=== PATIENT | female | born 2000 | race Hispanic/Latino ===

== ENCOUNTER 2021-04-20 04:00 | Inpatient (IN) | payer MEDICAID ==
[~2021-04-20] VITALS: Ht 152.4 cm; Wt 52.6 kg
[2021-04-20] MEDS ORDERED: ZIPRASIDONE MESYLATE 20 MG/VIAL IM ONE ×2 (04:42→05:00)
[2021-04-20] MEDS ORDERED: DiphenhydrAMINE HCL 50 MG/ML VIAL ONE (04:42)
[2021-04-20] MEDS ORDERED: LORAZEPAM 2 MG/ML 1 ML VIAL ONE (04:42)
[2021-04-20] MEDS ORDERED: 0.9%NACL 1000ML 1,000 ML IV ONE ×3 (04:43→05:00)
[2021-04-20 04:56] LABS: BASOPHILS % (AUTO) 0.4 % (0.0-5.0); EOSINOPHILS % (AUTO) 0.1 % (0.0-8.0); LYMPHOCYTES % (AUTO) 22.7 % (21.0-51.0); MEAN CORPUSCULAR HGB CONC 33.8 g/dL (32.0-36.0); MEAN CORPUSCULAR VOLUME 88.6 fL (80-100); MONOCYTES % (AUTO) 11.2 % (3.0-13.0); NEUTROPHILS % (AUTO) 65.3 % (40.0-77.0); PLATELET COUNT (AUTO) 402 K/uL (130-400); RED CELL DISTRIBUTION WIDTH 13.6 % (11.0-15.5); WHITE BLOOD COUNT (AUTO) 14.2 K/uL (4.8-10.8)
[2021-04-20] MEDS ORDERED: LORAZEPAM 2 MG/ML 1 ML VIAL IVP ONE (05:00)
[2021-04-20] MEDS ORDERED: DiphenhydrAMINE HCL 50 MG/ML VIAL IV ONE (05:00)
[2021-04-20 05:05] LABS: CARBON DIOXIDE 26 mmol/L (21-32); CHLORIDE 104 mmol/L (101-111); CREATININE 0.6 mg/dL (0.5-1.5); GLOMERULAR FILTR. RATE CALC 135 mL/min (>60); GLUCOSE,RANDOM 120 mg/dL (70-105); POTASSIUM 3.1 mmol/L (3.5-5.1); SODIUM SERUM 142 mmol/L (136-145); UREA NITROGEN, BLOOD 8 mg/dL (7-18)
[2021-04-20 05:12] LABS: BILIRUBIN,URINE Negative (NEGATIVE); COLOR,URINE Yellow (YELLOW); GLUCOSE, URINE (UA) Negative (NEGATIVE); KETONES,URINE >=80 mg/dL (NEGATIVE); LEUKOCYTE ESTERASE ,URINE Small (NEGATIVE); NITRATE,URINE Positive (NEGATIVE); OCCULT BLOOD,URINE Negative (NEGATIVE); PH,URINE 6.5 (5.0-8.0); PROTEIN,URINE Negative (NEGATIVE)
[2021-04-20 05:15] LABS: APPEARANCE,URINE SLIGHTLY CLOUDY (CLEAR)
[2021-04-20 05:21] LABS: AMPHET/METH SCREEN,URINE NEGATIVE (NEGATIVE); BARBITURATE SCREEN, URINE NEGATIVE (NEGATIVE); BENZODIAZEPINES SCREEN,URINE NEGATIVE (NEGATIVE); CANNABINOID SCREEN,URINE POSITIVE (NEGATIVE); COCAINE SCREEN,URINE NEGATIVE (NEGATIVE); OPIATE SCREEN,URINE NEGATIVE (NEGATIVE); PHENCYCLIDINE SCREEN,URINE NEGATIVE (NEGATIVE)
[2021-04-20 05:24] LABS: BACTERIA,URINE Many /HPF (None Seen); RBC,URINE 0-1 /HPF (0-1); SQUAMOUS EPITHELIAL CELL,UR Few /HPF (0-2)
[2021-04-20 05:25] LABS: MUCUS,URINE Moderate LPF (None Seen)
[2021-04-20 05:26] LABS: HCG,QUAL RESULT NEGATIVE (NEGATIVE)
[2021-04-20 05:28] LABS: ALANINE AMINOTRANSFERASE 36 U/L (12-78); ALBUMIN 4.2 g/dL (3.5-5.0); ALCOHOL, BLOOD < 3 mg/dL (0-10); AMMONIA 17 umol/L (11-32); ASPARTATE AMINOTRANSFERASE 84 U/L (10-37); BILIRUBIN,TOTAL 0.9 mg/dL (0.2-1.0); TOTAL PROTEIN, SERUM 7.5 g/dL (6.0-8.3)
[2021-04-20 05:30] LABS: ACETAMINOPHEN < 1 mcg/mL (10-30); LIPASE 37 U/L (114-286); SALICYLATE < 2.8 mg/dL (2.8-20.0)
[2021-04-20 05:33] LABS: CREATINE KINASE, TOTAL 4426 U/L (21-232)
[2021-04-20] MEDS ORDERED: CEFTRIAXONE 1G VIAL IVP ONE (06:00)
[2021-04-20] MEDS ORDERED: 0.9%NACL 1000ML 1,365 ML IV ONE (06:00)
[2021-04-20] MEDS ORDERED: 0.9%NACL 1000ML 1,000 ML IV SCH (08:30)
[2021-04-20] MEDS ORDERED: POTASSIUM CHLORIDE 10% ELIXIR 20 MEQ/15 ML UDCUP PO PRN (08:30)
[2021-04-20] MEDS ORDERED: ZIPRASIDONE MESYLATE 20 MG/VIAL IM PRN (08:30)
[2021-04-20] MEDS ORDERED: LORAZEPAM 2 MG/ML 1 ML VIAL IVP PRN (08:30)
[2021-04-20] MEDS ORDERED: ONDANSETRON 4MG INJ IVP PRN (08:30)
[2021-04-20] MEDS ORDERED: ACETAMINOPHEN 325 MG TAB PO PRN (08:30)
[2021-04-20] MEDS: CEFTRIAXONE 1G VIAL IVP SCH (08:30)
[2021-04-20] MEDS ORDERED: LIDOCAINE HCL-MPF 1% 2ML VIAL IJ PRN (08:30)
[2021-04-20] MEDS: POTASSIUM CHLORIDE 20MEQ/100ML 100 ML IV PRN ×2 (09:42→16:06)
[2021-04-20] MEDS: 0.9%NACL 1000ML 1,000 ML IV SCH ×3 (09:45→22:20)
[2021-04-20] MEDS ORDERED: 0.9% NACL 500ML IV.SOLN 456 ML IV ONE (19:00)
[2021-04-20 19:28] VITALS: BP 139/85
[2021-04-20 23:13] VITALS: BP 114/75
[2021-04-21 03:36] VITALS: BP 122/70
[2021-04-21 04:29] LABS: BASOPHILS % (AUTO) 0.5 % (0.0-5.0); EOSINOPHILS % (AUTO) 0.8 % (0.0-8.0); HEMATOCRIT 34.5 % (36-48); LYMPHOCYTES % (AUTO) 28.6 % (21.0-51.0); MEAN CORPUSCULAR HEMOGLOBIN 30.1 pg (27.0-33.0); MEAN CORPUSCULAR HGB CONC 33.6 g/dL (32.0-36.0); MEAN CORPUSCULAR VOLUME 89.6 fL (80-100); MONOCYTES % (AUTO) 10.4 % (3.0-13.0); NEUTROPHILS % (AUTO) 59.3 % (40.0-77.0); PLATELET COUNT (AUTO) 339 K/uL (130-400); RED BLOOD CELL COUNT(AUTO) 3.85 MIL/uL (4.00-5.50); RED CELL DISTRIBUTION WIDTH 14.5 % (11.0-15.5); WHITE BLOOD COUNT (AUTO) 12.8 K/uL (4.8-10.8)
[2021-04-21 05:16] LABS: ALBUMIN 3.2 g/dL (3.5-5.0); BILIRUBIN,TOTAL 0.7 mg/dL (0.2-1.0); CREATININE 0.4 mg/dL (0.5-1.5); POTASSIUM 3.2 mmol/L (3.5-5.1)
[2021-04-21] MEDS: POTASSIUM CHLORIDE 20MEQ/100ML 100 ML IV PRN ×2 (06:16→11:08)
[2021-04-21 08:00] VITALS: BP 130/74
[2021-04-21] MEDS: CEFTRIAXONE 1G VIAL IVP SCH (08:51)
[2021-04-21] MEDS ORDERED: FOLIC ACID 5 MG/ML VIAL IV SCH (09:00)
[2021-04-21] MEDS ORDERED: ZIPRASIDONE MESYLATE 20 MG/VIAL IM PRN (10:30)
[2021-04-21] MEDS ORDERED: LORAZEPAM 2 MG/ML 1 ML VIAL IVP PRN (10:30)
[2021-04-21] MEDS: FOLIC ACID 1 MG TABLET PO SCH (11:05)
[2021-04-21] MEDS: THIAMINE HCL 100 MG/ML 2ML VIAL IVP SCH (11:06)
[2021-04-21 12:00] VITALS: BP 121/71
[2021-04-21] MEDS ORDERED: HYDROXYZINE 25 MG TABLET PO PRN (13:30)
[2021-04-21] MEDS ORDERED: PHARMACY COMMUNICATION MISC PRN (15:00)
[2021-04-21] MEDS ORDERED: CHLORDIAZEPOXIDE HCL 25 MG CAP PO PRN (15:00)
[2021-04-21] MEDS: 0.9%NACL 1000ML 1,000 ML IV SCH ×2 (15:00→18:20)
[2021-04-21 16:00] VITALS: BP 115/73
[2021-04-21 19:15] VITALS: BP 114/82
[2021-04-21] MEDS ORDERED: DIPHENHYDRAMINE HCL 25 MG CAPSULE PO ONE (21:00)
[2021-04-21] MEDS: IBUPROFEN 200 MG TAB PO SCH (21:09)
[2021-04-21] MEDS: KCL 20 MEQ ERTAB PO PRN (21:11)
[2021-04-21 23:18] VITALS: BP 111/68
[2021-04-22] MEDS: 0.9%NACL 1000ML 1,000 ML IV SCH (01:00)
[2021-04-22 03:09] VITALS: BP 118/88
[2021-04-22 04:23] LABS: ALBUMIN 2.3 g/dL (3.5-5.0); BILIRUBIN,TOTAL 0.3 mg/dL (0.2-1.0); CREATININE 0.5 mg/dL (0.5-1.5); TOTAL PROTEIN, SERUM 4.7 g/dL (6.0-8.3)
[2021-04-22] MEDS: KCL 20 MEQ ERTAB PO PRN (06:14)
[2021-04-22] MEDS: IBUPROFEN 200 MG TAB PO SCH ×3 (06:14→20:51)
[2021-04-22 08:04] VITALS: BP 114/59
[2021-04-22] MEDS ORDERED: KCL 20 MEQ ERTAB PO SCH (08:30)
[2021-04-22] MEDS ORDERED: MAGNESIUM 2GM PREMIX 50ML 50 ML IV SCH (08:30)
[2021-04-22] MEDS: LACTATED RINGERS 1000ML 1,000 ML IV SCH ×2 (09:10→20:51)
[2021-04-22] MEDS: CEFTRIAXONE 1G VIAL IVP SCH (09:11)
[2021-04-22] MEDS: PANTOPRAZOLE 40 MG TAB DR PO SCH (09:12)
[2021-04-22] MEDS: FOLIC ACID 1 MG TABLET PO SCH (09:12)
[2021-04-22] MEDS: THIAMINE HCL 100 MG/ML 2ML VIAL IVP SCH (09:13)
[2021-04-22 12:24] VITALS: BP 112/67
[2021-04-22 16:21] VITALS: BP 126/78
[2021-04-22 19:40] VITALS: BP_SYST 129; BP_SYST 144; BP_DIAS 57; BP_DIAS 79
[2021-04-22 22:52] VITALS: BP 129/89
[2021-04-23 04:06] VITALS: BP 131/85
[2021-04-23 04:37] LABS: BASOPHILS % (AUTO) 0.4 % (0.0-5.0); EOSINOPHILS % (AUTO) 0.5 % (0.0-8.0); HEMATOCRIT 36.6 % (36-48); LYMPHOCYTES % (AUTO) 20.3 % (21.0-51.0); MEAN CORPUSCULAR HEMOGLOBIN 30.6 pg (27.0-33.0); MEAN CORPUSCULAR HGB CONC 34.2 g/dL (32.0-36.0); MEAN CORPUSCULAR VOLUME 89.5 fL (80-100); MONOCYTES % (AUTO) 8.7 % (3.0-13.0); NEUTROPHILS % (AUTO) 69.7 % (40.0-77.0); PLATELET COUNT (AUTO) 394 K/uL (130-400); RED BLOOD CELL COUNT(AUTO) 4.09 MIL/uL (4.00-5.50); RED CELL DISTRIBUTION WIDTH 14.2 % (11.0-15.5); WHITE BLOOD COUNT (AUTO) 9.2 K/uL (4.8-10.8)
[2021-04-23] MEDS: IBUPROFEN 200 MG TAB PO SCH ×2 (04:41→14:00)
[2021-04-23 04:56] LABS: CREATININE 0.5 mg/dL (0.5-1.5); MAGNESIUM 2.2 mg/dL (1.80-2.40); POTASSIUM 3.5 mmol/L (3.5-5.1)
[2021-04-23 07:20] VITALS: BP 130/88
[2021-04-23] MEDS: PANTOPRAZOLE 40 MG TAB DR PO SCH (10:17)
[2021-04-23] MEDS: FOLIC ACID 1 MG TABLET PO SCH (10:17)
[2021-04-23] MEDS: CEFTRIAXONE 1G VIAL IVP SCH (10:17)
[2021-04-23] MEDS: THIAMINE HCL 100 MG/ML 2ML VIAL IVP SCH (10:18)
[2021-04-23 10:47] VITALS: BP 103/69
[2021-04-23] MEDS: LACTATED RINGERS 1000ML 1,000 ML IV SCH (11:10)
[2021-04-23] MEDS ORDERED: CEFU500T67 PO (11:11)
[2021-04-23] MEDS ORDERED: AEC81 PO (14:04)
[2021-04-23] MEDS ORDERED: FAMO-136 PO (14:04)
[2021-04-23] MEDS ORDERED: OMEP20TA2 PO (14:06)
[2021-04-23 15:27] VITALS: BP 126/87
[2021-04-23] MEDS ORDERED: HYDR-3421 PO (16:47)
[2021-04-23] MEDS ORDERED: ZIPR20CA2 PO (16:47)
[2021-04-23] MEDS ORDERED: CEFUROXIME AXETIL 250 MG TABLET PO SCH (21:00)
[2021-04-24 03:09] LABS: HEPATITIS B CORE IGM Negative (Negative)
[2021-04-24 10:13] LABS: HEPATITIS Bs ANTIGEN SCREEN P Negative (Negative)
[2021-04-24] MEDS ORDERED: MACR100 PO (12:51)
== END 2021-04-23 19:10 | disposition home or self-care (01) | DRG 812 ==
LOC: EDH 04:00 → EDHIP 04:01 → 2AH 15:55 → 3AH 04-23 02:28
PROVIDERS: ADMIT Hospitalist; ATTEND Hospitalist
DX: T50.911A Poisoning by multiple unspecified drugs, medicaments and biological substances, accidental (unintentional), initial encounter (principal); G92.8 Other toxic encephalopathy; M62.82 Rhabdomyolysis; I80.8 Phlebitis and thrombophlebitis of other sites; F20.9 Schizophrenia, unspecified; N39.0 Urinary tract infection, site not specified; F31.9 Bipolar disorder, unspecified; E87.6 Hypokalemia; B96.1 Klebsiella pneumoniae [K. pneumoniae] as the cause of diseases classified elsewhere; F12.10 Cannabis abuse, uncomplicated; F14.10 Cocaine abuse, uncomplicated; F41.1 Generalized anxiety disorder; Z91.14 Patient's other noncompliance with medication regimen; Y92.89 Other specified places as the place of occurrence of the external cause
CPT/HCPCS: 36415; 71045; 73070; 80048; 80053; 80305; 81001; 81025; 82140; 82550; 83605; 83690; 83735; 84132; 84484; 85025; 86701; 86704; 86705; 86706; 86717; 86804; 87040; 87077; 87088; 87186; 87340; 87350; 87390; 87522; 93005; 93971; 99291; G0378; G0481; J0696; J1200; J2060; J3411; J3475; J3480; J3486; J3490; J7030; J7120; Q0163